=== PATIENT | female | born 1945 | race Caucasian/White ===

== ENCOUNTER 2022-03-14 20:47 | Emergency (ER) | payer OTHER ==
[~2022-03-14] VITALS: Ht 162.6 cm; Wt 69.4 kg
[2022-03-14 21:36] LABS: BASOPHILS % (AUTO) 0.5 % (0.0-5.0); EOSINOPHILS % (AUTO) 5.4 % (0.0-8.0); HEMATOCRIT 40.1 % (36-48); LYMPHOCYTES % (AUTO) 20.7 % (21.0-51.0); MEAN CORPUSCULAR HGB CONC 33.9 g/dL (32.0-36.0); MEAN CORPUSCULAR VOLUME 88.3 fL (79-99); MONOCYTES % (AUTO) 6.9 % (3.0-13.0); NEUTROPHILS % (AUTO) 66.3 % (40.0-77.0); PLATELET COUNT (AUTO) 247 K/uL (130-400); RED BLOOD CELL COUNT(AUTO) 4.54 MIL/uL (4.00-5.50); WHITE BLOOD COUNT (AUTO) 6.6 K/uL (4.8-10.8)
[2022-03-14 21:47] LABS: CREATININE 0.7 mg/dL (0.5-1.5); POTASSIUM 3.9 mmol/L (3.5-5.1)
[2022-03-14 21:52] LABS: TOTAL PROTEIN, SERUM 7.8 g/dL (6.0-8.3)
[2022-03-14] MEDS ORDERED: 0.9%NACL 1000ML 1,000 ML IV ONE (22:00)
[2022-03-14] MEDS ORDERED: ONDANSETRON 4MG INJ IVP ONE (22:00)
[2022-03-14] MEDS ORDERED: ONDA4TAB10 PO (23:15)
[2022-03-14 23:26] VITALS: BP 120/53
== END 2022-03-14 23:26 | disposition home or self-care (01) ==
LOC: EDH 20:47
DX: R10.13 Epigastric pain (principal); E86.9 Volume depletion, unspecified; R11.10 Vomiting, unspecified; Z20.822 Contact with and (suspected) exposure to COVID-19; E78.00 Pure hypercholesterolemia, unspecified; I10 Essential (primary) hypertension; Z98.890 Other specified postprocedural states
CPT/HCPCS: 99284; 80053; 83690; 85025; 87804 ×2; 36415; 87635; 76705; 96374; 96361; C9803; J7030; J2405